=== PATIENT | female | born 1955 | race Caucasian/White ===

== ENCOUNTER → 2020-06-16 | Outpatient (CLI) | payer MEDICARE, OTHER | LOC: EXRD 14:15 | DX: M25.561 Pain in right knee (principal); M17.11 Unilateral primary osteoarthritis, right knee; M25.461 Effusion, right knee | CPT/HCPCS: 73564 ==

== ENCOUNTER → 2021-07-01 | Outpatient (CLI) | payer OTHER | LOC: MAMO 07:32 | DX: Z12.31 Encounter for screening mammogram for malignant neoplasm of breast (principal); Z13.820 Encounter for screening for osteoporosis; D21.9 Benign neoplasm of connective and other soft tissue, unspecified; Z78.0 Asymptomatic menopausal state | CPT/HCPCS: 76856; 77063; 77067; 77080 ==

== ENCOUNTER → 2021-08-17 | Outpatient (CLI) | payer MEDICARE, OTHER | LOC: EXRD 09:45 | DX: R14.0 Abdominal distension (gaseous) (principal) | CPT/HCPCS: 76700 ==